=== PATIENT | female | born 1970 | race Caucasian/White ===

== ENCOUNTER 2020-09-27 13:39 | Outpatient (REF) | payer OTHER, SELFPAY | END 2020-09-27 13:40 | disposition home or self-care (01) | LOC: HO.LAB 13:39 | PROVIDERS: Visit Provider Internal Medicine | DX: Z20.828 Contact with and (suspected) exposure to other viral communicable diseases (principal) | CPT/HCPCS: 36415; C9803; U0003 ==

== ENCOUNTER 2020-12-04 08:38 | Outpatient (REF) | payer OTHER, SELFPAY | END 2020-12-04 08:39 | disposition home or self-care (01) | LOC: HO.LAB 08:38 | PROVIDERS: Visit Provider Internal Medicine | DX: Z20.822 Contact with and (suspected) exposure to COVID-19 (principal) | CPT/HCPCS: 36415; C9803; U0003; U0005 ==

== ENCOUNTER 2021-02-24 12:56 | Emergency (ER) | payer OTHER, SELFPAY ==
--- NOTE | ~2021-02-24 | XR_ITS ---
EXAMINATION: XR CHEST CLINICAL INFORMATION: Chest tightness COMPARISON: None TECHNIQUE: Frontal view of the chest was obtained. FINDINGS: No significant abnormality is noted involving the heart, lungs, mediastinum, bony thorax or soft tissues. XR/XR chest 1V IMPRESSION: Unremarkable chest examination.
[2021-02-24 13:19] VITALS: BP 187/95; PULSE 98; RESP 18; TEMP 36.4; O2SAT 98; BMI 31.2
== END 2021-02-24 17:08 | disposition left against medical advice (07) ==
PROVIDERS: Emergency Provider Emergency Medicine
DX: R06.00 Dyspnea, unspecified (principal); Z20.822 Contact with and (suspected) exposure to COVID-19
CPT/HCPCS: 71045; 99282

== ENCOUNTER 2023-07-03 11:37 | Emergency (ER) | payer OTHER, SELFPAY ==
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
[2023-07-03 11:41] VITALS: BP 153/75; PULSE 77; RESP 19; TEMP 36.6; O2SAT 98; BMI 28.9
--- NOTE | 2023-07-03 11:47 | PC.NURSE ---
point tenderness in lower cervical and collar placed, states her head snapped back and then fell no loc
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
[2023-07-03] MEDS: Ondansetron ODT 4 MG TAB.RAPDIS TRANSLINGU (13:44)
[2023-07-03] MEDS: Ketorolac Tromethamine 30 MG/ML VIAL IM (16:43)
== END 2023-07-03 17:51 | disposition home or self-care (01) ==
PROVIDERS: Emergency Provider Emergency Medicine
DX: S06.0X9A Concussion with loss of consciousness of unspecified duration, initial encounter (principal); S16.1XXA Strain of muscle, fascia and tendon at neck level, initial encounter; Y04.2XXA Assault by strike against or bumped into by another person, initial encounter; Y93.89 Activity, other specified; Y92.218 Other school as the place of occurrence of the external cause; Y99.0 Civilian activity done for income or pay
CPT/HCPCS: 70450; 72125; 96372; 99283; 99284; J1885

== ENCOUNTER → 2023-07-07 10:38 | Outpatient (BNVA) | payer OTHER, SELFPAY | PROVIDERS: Visit Provider Physician Assistant Medical | DX: S06.2X0A Diffuse traumatic brain injury without loss of consciousness, initial encounter (principal); Y04.2XXA Assault by strike against or bumped into by another person, initial encounter; M54.2 Cervicalgia | CPT/HCPCS: 99203 ==

== ENCOUNTER → 2023-07-14 07:59 | Outpatient (BNVA) | payer OTHER, SELFPAY | PROVIDERS: Visit Provider Physician Assistant Medical | DX: S06.0X0A Concussion without loss of consciousness, initial encounter (principal); S16.1XXA Strain of muscle, fascia and tendon at neck level, initial encounter; Y04.2XXA Assault by strike against or bumped into by another person, initial encounter | CPT/HCPCS: 99214 ==

== ENCOUNTER → 2023-07-21 08:02 | Outpatient (BNVA) | payer OTHER, SELFPAY | PROVIDERS: Visit Provider Physician Assistant Medical | DX: S06.2X0A Diffuse traumatic brain injury without loss of consciousness, initial encounter (principal); Y04.2XXA Assault by strike against or bumped into by another person, initial encounter; S16.1XXA Strain of muscle, fascia and tendon at neck level, initial encounter; S46.819A Strain of other muscles, fascia and tendons at shoulder and upper arm level, unspecified arm, initial encounter; M54.2 Cervicalgia; R11.0 Nausea; H53.71 Glare sensitivity | CPT/HCPCS: 99213 ==

== ENCOUNTER → 2023-08-04 08:05 | Outpatient (BNVA) | payer OTHER, SELFPAY | PROVIDERS: Visit Provider Physician Assistant Medical | DX: S06.2X0D Diffuse traumatic brain injury without loss of consciousness, subsequent encounter (principal); S46.819D Strain of other muscles, fascia and tendons at shoulder and upper arm level, unspecified arm, subsequent encounter; W50.0XXD Accidental hit or strike by another person, subsequent encounter; M54.2 Cervicalgia; H53.71 Glare sensitivity | CPT/HCPCS: 99213 ==

== ENCOUNTER → 2023-08-11 08:04 | Outpatient (BNVA) | payer OTHER, SELFPAY | PROVIDERS: Visit Provider Physician Assistant Medical | DX: S06.2X0D Diffuse traumatic brain injury without loss of consciousness, subsequent encounter (principal); S16.1XXD Strain of muscle, fascia and tendon at neck level, subsequent encounter; Y04.2XXD Assault by strike against or bumped into by another person, subsequent encounter | CPT/HCPCS: 99213 ==

== ENCOUNTER → 2023-08-20 08:45 | Outpatient (BNVA) | payer OTHER, SELFPAY | PROVIDERS: Visit Provider Internal Medicine | DX: S06.9X0D Unspecified intracranial injury without loss of consciousness, subsequent encounter (principal); S16.1XXD Strain of muscle, fascia and tendon at neck level, subsequent encounter; Y04.2XXD Assault by strike against or bumped into by another person, subsequent encounter | CPT/HCPCS: 99213 ==

== ENCOUNTER → 2024-07-23 12:22 | Outpatient (BNVA) | payer OTHER, SELFPAY | PROVIDERS: Visit Provider Registered Nurse | DX: S00.83XA Contusion of other part of head, initial encounter (principal); S50.02XA Contusion of left elbow, initial encounter; S70.01XA Contusion of right hip, initial encounter; S90.02XA Contusion of left ankle, initial encounter; S90.01XA Contusion of right ankle, initial encounter; W18.39XA Other fall on same level, initial encounter; Y93.02 Activity, running; Y92.219 Unspecified school as the place of occurrence of the external cause; Y99.0 Civilian activity done for income or pay | CPT/HCPCS: 73080; 73560; 73610; 99203 ==

== ENCOUNTER → 2024-07-27 12:59 | Outpatient (BNVA) | payer OTHER, SELFPAY | PROVIDERS: Visit Provider Registered Nurse | DX: S50.02XA Contusion of left elbow, initial encounter (principal); S90.01XA Contusion of right ankle, initial encounter; W18.39XA Other fall on same level, initial encounter | CPT/HCPCS: 99213 ==

== ENCOUNTER → 2024-08-03 13:25 | Outpatient (BNVA) | payer OTHER, SELFPAY | PROVIDERS: Visit Provider Registered Nurse | DX: S90.01XD Contusion of right ankle, subsequent encounter (principal); S90.02XD Contusion of left ankle, subsequent encounter; S93.401D Sprain of unspecified ligament of right ankle, subsequent encounter; S93.402D Sprain of unspecified ligament of left ankle, subsequent encounter; W50.0XXD Accidental hit or strike by another person, subsequent encounter | CPT/HCPCS: 99213 ==

== ENCOUNTER → 2024-08-17 13:03 | Outpatient (BNVA) | payer OTHER, SELFPAY | PROVIDERS: Visit Provider Registered Nurse | DX: S90.01XD Contusion of right ankle, subsequent encounter (principal); S90.02XD Contusion of left ankle, subsequent encounter; W03.XXXD Other fall on same level due to collision with another person, subsequent encounter | CPT/HCPCS: 99213 ==

== ENCOUNTER → 2024-08-31 12:55 | Outpatient (BNVA) | payer OTHER, SELFPAY | PROVIDERS: Visit Provider Registered Nurse | DX: S90.01XD Contusion of right ankle, subsequent encounter (principal); S90.02XD Contusion of left ankle, subsequent encounter; W18.30XD Fall on same level, unspecified, subsequent encounter | CPT/HCPCS: 99213 ==